=== PATIENT | female | born 1955 | race Caucasian/White ===

== ENCOUNTER → 2019-07-16 | Outpatient (CLI) | payer BC, MEDICARE | END | disposition home or self-care (01) | LOC: LAB SHORT 09:34 → LAB EV 09:34 | DX: R06.02 Shortness of breath (principal) | CPT/HCPCS: 83880 ==

== ENCOUNTER 2020-05-26 08:22 | Day surgery (SDC) | payer MEDICARE, BC ==
[~2020-05-26] VITALS: Ht 154.9 cm; Wt 99.4 kg
[~2020-05-26 08:22] MED LIST: Carisoprodol350 MG PO; ESCI20 PO; FUROSEMIDE20 MG PO; LANSOPRAZOLE30 MG PO; Pravachol40 MG PO; SPIRONOLACTONE25 MG PO; VALSARTAN160 MG PO
--- NOTE | 2020-05-26 10:18 | NUR ---
05/26/20 1018 Ximena Carrillo PT WENT INTO A FIB AT THE START OF THE COLONOSCOPY WITH A RATE BETWEEN 110-120. PT SEDATED FOR PROCEDURE. BP 132/61. PT CONVERTED T0 A FIB AT 1002, UPPER COMPLETED AT 1004. GOING TO COMPLETE COLONOSCOPY PRESSURES ARE GOOD.
--- NOTE | 2020-05-26 11:08 | NUR ---
05/26/20 1108 FRANSISCO PRICE RECEIVED REPORT FROM MIRA ROGERS. DURING MAC PROCEDURE PATIENT CONVERTED TO A FIB. 12 LEAD EKG PERFORMED IN STEP DOWN FOLLOWING PROCEDURE. ATTEMPTED CONVERSION WITH VALSALVA MANEUVER. NO CHANGE. PATIENT SEEN BY DR. TRAORE, ANESTHESIA AND ALLOWED TO BE DISCHARGED. PATIENT'S PRIMARY CARE CONSULTED BY DR. KNOWLES
== END 2020-05-26 11:07 | disposition home or self-care (01) ==
LOC: ORSCSDS 08:22
PROVIDERS: Internal Medicine Gastroenterology
PROC: 0DB78ZX Excision of Stomach, Pylorus, Via Natural or Artificial Opening Endoscopic, Diagnostic (ICD-10-PCS; principal; 2020-05-26 10:15)
PROC: 0D568ZZ Destruction of Stomach, Via Natural or Artificial Opening Endoscopic (ICD-10-PCS; principal; 2020-05-26 10:15)
PROC: 0DBN8ZX Excision of Sigmoid Colon, Via Natural or Artificial Opening Endoscopic, Diagnostic (ICD-10-PCS; principal; 2020-05-26 10:15)
DX: K22.70 Barrett's esophagus without dysplasia (principal); K21.9 Gastro-esophageal reflux disease without esophagitis; K44.9 Diaphragmatic hernia without obstruction or gangrene; K22.2 Esophageal obstruction; Z12.11 Encounter for screening for malignant neoplasm of colon; Z86.010 Personal history of colon polyps; K63.5 Polyp of colon; K57.30 Diverticulosis of large intestine without perforation or abscess without bleeding; K64.1 Second degree hemorrhoids; I10 Essential (primary) hypertension; F17.210 Nicotine dependence, cigarettes, uncomplicated; E66.01 Morbid (severe) obesity due to excess calories; Z68.41 Body mass index [BMI] 40.0-44.9, adult; Z79.899 Other long term (current) drug therapy
CPT/HCPCS: 88305; 88342; 93005; 93010; J2704; J7120

== ENCOUNTER → 2021-08-04 | Outpatient (CLI) | payer MEDICARE, BC | END | disposition home or self-care (01) | LOC: LAB 18:42 → LAB SHORT 18:42 | DX: L02.91 Cutaneous abscess, unspecified (principal) | CPT/HCPCS: 87070; 87075; 87076; 87077; 87185; 87186; 87205 ==

== ENCOUNTER 2022-07-26 09:13 | Emergency (ER) | payer MEDICARE, BC ==
[~2022-07-26] VITALS: Ht 154.9 cm; Wt 108.4 kg
[2022-07-26 10:04] LABS: BASOPHILS ABSOLUTE AUTO 0.07 K/mm3 (0.00-0.23); BASOPHILS PERCENT AUTO 1 % (0-2); EOSINOPHILS ABSOLUTE AUTO 0.08 K/mm3 (0.00-0.68); EOSINOPHILS PERCENT AUTO 1 % (0-6); Hematocrit 43.7 % (33.0-51.0); Hemoglobin 14.7 g/dL (11.5-16.0); IMMATURE GRAN ABSOLUTE AUTO 0.01 K/mm3 (0.00-0.10); IMMATURE GRAN PERCENT AUTO 0 % (0-1); LYMPHOCYTES ABSOLUTE AUTO 2.06 K/mm3 (0.84-5.20); LYMPHOCYTES PERCENT AUTO 29 % (21-46); MONOCYTES ABSOLUTE AUTO 0.57 K/mm3 (0.16-1.47); MONOCYTES PERCENT AUTO 8 % (4-13); Mean Corpuscular HGB 33.3 pg (26.0-34.0); Mean Corpuscular HGB Conc 33.6 g/dL (31.5-36.5); Mean Corpuscular Volume 99 fL (80-100); Mean Platelet Volume 9.6 fL (9.1-12.4); NEUTROPHILS PERCENT AUTO 61 % (41-73); Platelet Count 250 K/mm3 (150-400); RDW Coefficient Variation 12.3 % (11.7-14.2); RDW Standard Deviation 44.4 fL (35.1-46.3); Red Blood Cell Count 4.42 M/mm3 (3.80-5.20); White Blood Cell Count 7.09 K/mm3 (4.00-11.30)
[2022-07-26 10:32] LABS: Albumin, Blood 3.2 g/dL (3.4-5.0); Bilirubin, Direct 0.1 mg/dL (0.0-0.3); Bilirubin, Indirect 0.4 mg/dL (0.1-0.7); Bilirubin, Total 0.5 mg/dL (0.1-1.0); Bun/Creatinine Ratio 14.9 (12.0-20.0); Calcium, Blood 9.1 mg/dL (8.5-10.1); Creatinine, Blood 0.74 mg/dL (0.40-1.00); Globulin, Blood 3.3 g/dL (2.2-4.0); Magnesium, Blood 2.3 mg/dL (1.6-2.4); Potassium, Blood 3.9 mmol/L (3.5-5.5); Total Protein, Blood 6.5 g/dL (6.4-8.2)
[2022-07-26 12:07] LABS: Source, Urine Clean Catch
[2022-07-26 12:13] LABS: Appearance, Urine Hazy (Clear); Bilirubin, Urine Neg (Neg); Blood, Urine 5+ (Neg); Color, Urine Yellow (P-Yellow); Glucose Qualitative, Urine Neg (Neg); Ketones, Urine Neg (Neg); Leukocyte Esterase, Urine 1+ (Neg); Nitrite, Urine Pos (Neg); Protein, Urine 2+ (Neg); Urobilinogen, Urine NORM (Normal)
[2022-07-26 12:26] LABS: Bacteria Many /hpf; Red Blood Cells, Urine 25-50 /hpf (0-2); Squamous Epithelial Cells Few /hpf (Few)
[2022-07-26] MEDS ORDERED: CEFD300 PO (13:56)
== END 2022-07-26 14:00 | disposition home or self-care (01) ==
LOC: ER 09:13
PROVIDERS: Student in an Organized Health Care Education/Training Program
DX: N13.6 Pyonephrosis (principal); I10 Essential (primary) hypertension; Z88.8 Allergy status to other drugs, medicaments and biological substances; Z79.899 Other long term (current) drug therapy
CPT/HCPCS: 36415; 74177; 80048; 80076; 81001; 83690; 83735; 85025; 87077; 87086; 87186; J0696; J1885; J7030; Q9967

== ENCOUNTER → 2023-04-12 | Outpatient (CLI) | payer MEDICARE, BC ==
[~2023-04-12] MED LIST changes: +CEFD300 PO
[2023-04-12 11:10] LABS: BASOPHILS ABSOLUTE AUTO 0.02 K/mm3 (0.00-0.23); BASOPHILS PERCENT AUTO 0 % (0-2); EOSINOPHILS PERCENT AUTO 0 % (0-6); Hematocrit 42.7 % (33.0-51.0); Hemoglobin 15.2 g/dL (11.5-16.0); IMMATURE GRAN ABSOLUTE AUTO 0.03 K/mm3 (0.00-0.10); IMMATURE GRAN PERCENT AUTO 1 % (0-1); LYMPHOCYTES ABSOLUTE AUTO 0.48 K/mm3 (0.84-5.20); LYMPHOCYTES PERCENT AUTO 7 % (21-46); MONOCYTES ABSOLUTE AUTO 0.86 K/mm3 (0.16-1.47); MONOCYTES PERCENT AUTO 13 % (4-13); Mean Corpuscular HGB 33.8 pg (26.0-34.0); Mean Corpuscular HGB Conc 35.6 g/dL (31.5-36.5); Mean Corpuscular Volume 95 fL (80-100); Mean Platelet Volume 9.2 fL (9.1-12.4); NEUTROPHILS ABSOLUTE AUTO 5.09 K/mm3 (1.96-9.15); NEUTROPHILS PERCENT AUTO 79 % (41-73); Platelet Count 184 K/mm3 (150-400); RDW Standard Deviation 42.3 fL (35.1-46.3); White Blood Cell Count 6.48 K/mm3 (4.00-11.30)
[2023-04-12 11:18] LABS: Albumin, Blood 3.3 g/dL (3.4-5.0); Albumin/Globulin Ratio 0.9 (0.8-1.8); Bilirubin, Total 0.6 mg/dL (0.1-1.0); Bun/Creatinine Ratio 10.9 (12.0-20.0); Calcium, Blood 9.3 mg/dL (8.5-10.1); Creatinine, Blood 0.92 mg/dL (0.40-1.00); Globulin, Blood 3.8 g/dL (2.2-4.0); Total Protein, Blood 7.1 g/dL (6.4-8.2)
== END ==
LOC: LAB SHORT 11:03 → LAB 11:03
PROVIDERS: Physician Assistant
DX: R19.7 Diarrhea, unspecified (principal)
CPT/HCPCS: 80053; 85025

== ENCOUNTER 2025-03-03 16:33 | Emergency (ER) | payer MEDICARE ==
[~2025-03-03] VITALS: Ht 154.9 cm; Wt 118.4 kg
[2025-03-03] MEDS ORDERED: Morphine Sulfate 4 MG/1 ML Injection IV ONE (16:55)
[2025-03-03] MEDS ORDERED: Ondansetron HCl 2 MG / ML 2ML Vial IV ONE (16:55)
[2025-03-03 17:10] LABS: BASOPHILS ABSOLUTE AUTO 0.05 K/mm3 (0.00-0.23); BASOPHILS PERCENT AUTO 1 % (0-2); EOSINOPHILS ABSOLUTE AUTO 0.04 K/mm3 (0.00-0.68); EOSINOPHILS PERCENT AUTO 0 % (0-6); Hematocrit 43.8 % (33.0-51.0); Hemoglobin 15.4 g/dL (11.5-16.0); IMMATURE GRAN ABSOLUTE AUTO 0.03 K/mm3 (0.00-0.10); IMMATURE GRAN PERCENT AUTO 0 % (0-1); LYMPHOCYTES ABSOLUTE AUTO 2.43 K/mm3 (0.84-5.20); LYMPHOCYTES PERCENT AUTO 27 % (21-46); MONOCYTES ABSOLUTE AUTO 0.67 K/mm3 (0.16-1.47); MONOCYTES PERCENT AUTO 8 % (4-13); Mean Corpuscular HGB 32.7 pg (26.0-34.0); Mean Corpuscular HGB Conc 35.2 g/dL (31.5-36.5); Mean Corpuscular Volume 93 fL (80-100); Mean Platelet Volume 9.4 fL (9.1-12.4); NEUTROPHILS ABSOLUTE AUTO 5.72 K/mm3 (1.96-9.15); NEUTROPHILS PERCENT AUTO 64 % (41-73); Platelet Count 232 K/mm3 (150-400); RDW Coefficient Variation 11.9 % (11.7-14.2); RDW Standard Deviation 40.8 fL (35.1-46.3); Red Blood Cell Count 4.71 M/mm3 (3.80-5.20); White Blood Cell Count 8.94 K/mm3 (4.00-11.30)
[2025-03-03 17:54] LABS: Albumin, Blood 3.3 g/dL (3.4-5.0); Albumin/Globulin Ratio 0.9 (0.8-1.8); Bilirubin, Total 0.8 mg/dL (0.1-1.0); Bun/Creatinine Ratio 18.9 (12.0-20.0); Calcium, Blood 8.9 mg/dL (8.5-10.1); Creatinine, Blood 0.79 mg/dL (0.40-1.00); Globulin, Blood 3.6 g/dL (2.2-4.0); Potassium, Blood 3.8 mmol/L (3.5-5.5); Total Protein, Blood 6.9 g/dL (6.4-8.2)
[2025-03-03 19:17] LABS: Source, Urine Voided
[2025-03-03 19:20] LABS: Appearance, Urine Cloudy (Clear); Bilirubin, Urine Neg (Neg); Blood, Urine 5+ (Neg); Color, Urine Amber (P-Yellow); Glucose Qualitative, Urine Neg (Neg); Ketones, Urine Neg (Neg); Leukocyte Esterase, Urine Neg (Neg); Nitrite, Urine Pos (Neg); Protein, Urine 2+ (Neg); Urobilinogen, Urine 1+ (Normal)
[2025-03-03 19:30] LABS: Bacteria Many /hpf; Red Blood Cells, Urine TNTC /hpf (0-2); Squamous Epithelial Cells Few /hpf (Few); White Blood Cells, Urine 0-2 /hpf (0-5)
[2025-03-03] MEDS ORDERED: Ketorolac Tromethamine 30mg Vial IV ONE (19:55)
[2025-03-03 20:30] VITALS: BP 132/85
[2025-03-03] MEDS ORDERED: OXYACE7.5T PO (20:33)
== END 2025-03-03 20:46 | disposition home or self-care (01) ==
LOC: ER 16:33
PROVIDERS: Emergency Medicine
DX: N23 Unspecified renal colic (principal); R31.9 Hematuria, unspecified; I10 Essential (primary) hypertension; Z88.8 Allergy status to other drugs, medicaments and biological substances; Z79.899 Other long term (current) drug therapy
CPT/HCPCS: 74177; 80053; 81001; 83690; 85025; 87077; 87086; 87186; 93005; 93010; 96374-59; 96375; 99284-25; J1885; J2270; J2405; Q9967

== ENCOUNTER → 2025-03-11 | Outpatient (CLI) | payer MEDICARE ==
[~2025-03-11] MED LIST changes: +OXYACE7.5T PO
[2025-03-11 12:44] LABS: Hematocrit 44.2 % (33.0-51.0); Hemoglobin 15.6 g/dL (11.5-16.0); Mean Corpuscular HGB 32.6 pg (26.0-34.0); Mean Corpuscular HGB Conc 35.3 g/dL (31.5-36.5); Mean Corpuscular Volume 92 fL (80-100); Mean Platelet Volume 9.9 fL (9.1-12.4); Platelet Count 235 K/mm3 (150-400); RDW Coefficient Variation 12.5 % (11.7-14.2); RDW Standard Deviation 42.3 fL (35.1-46.3); Red Blood Cell Count 4.79 M/mm3 (3.80-5.20); White Blood Cell Count 6.77 K/mm3 (4.00-11.30)
[2025-03-11 12:54] LABS: Albumin, Blood 3.6 g/dL (3.4-5.0); Albumin/Globulin Ratio 1.1 (0.8-1.8); Bilirubin, Total 0.9 mg/dL (0.1-1.0); Calcium, Blood 9.7 mg/dL (8.5-10.1); Creatinine, Blood 0.91 mg/dL (0.40-1.00); Globulin, Blood 3.3 g/dL (2.2-4.0); Potassium, Blood 3.8 mmol/L (3.5-5.5); Total Protein, Blood 6.9 g/dL (6.4-8.2)
[2025-03-11 13:09] LABS: BASOPHILS ABSOLUTE MAN 0.06 K/mm3 (0.00-0.23); BASOPHILS PERCENT MAN 1 % (0-2); EOSINOPHILS PERCENT MAN 0 % (0-6); LYMPHOCYTES ABSOLUTE MAN 1.48 K/mm3 (0.84-5.20); LYMPHOCYTES PERCENT MAN 22 % (21-46); MONOCYTES PERCENT MAN 3 % (4-13); SEG NEUTROPHILS PERCENT MAN 74 % (41-73); TOTAL CELLS COUNTED 100
== END | disposition home or self-care (01) ==
LOC: LAB SHORT 11:31 → LAB 11:31
PROVIDERS: Nurse Practitioner
DX: R11.2 Nausea with vomiting, unspecified (principal); R10.9 Unspecified abdominal pain
CPT/HCPCS: 80053; 83690; 85007; 85027

== ENCOUNTER 2025-07-06 06:09 | Day surgery (SDC) | payer MEDICARE ==
[~2025-07-06] VITALS: Ht 154.9 cm; Wt 110.0 kg
[2025-07-06] VITALS (11 sets, daily range): BP systolic 99–139; BP diastolic 71–109
[2025-07-06] MEDS ORDERED: ELIQUIS5 M2 PO (06:36)
[2025-07-06] MEDS ORDERED: ALBU90OI INH (06:36)
[2025-07-06] MEDS ORDERED: METO50ER PO (06:37)
[2025-07-06] MEDS ORDERED: NS 1,000 ML IV ONE (06:57)
--- NOTE | 2025-07-06 07:30 | NUR ---
ASSUMED CARE FROM ANESTHESIA. PT AWAKE AND VERBALIZING WELL. AFIB 60-70 BPM POST CARDIOVERSION.
--- NOTE | 2025-07-06 08:14 | NUR ---
PT AND FRIEND VERBALIZED UNDERSTANDING OF WRITTEN AND VERBAL D/C INST. AFIB 70BPM ON D/C. IV REMOVED. PT TAKEN OUT OF THE [facility]ENTER VIA W/C.
[2025-07-06] MEDS ORDERED: Propofol 10mg/ml 20 ml Vial (Procedural) IV ONE (11:54)
== END 2025-07-06 23:00 | disposition home or self-care (01) ==
LOC: MHTC 06:09
DX: I48.11 Longstanding persistent atrial fibrillation (principal); I10 Essential (primary) hypertension; I44.1 Atrioventricular block, second degree; K21.9 Gastro-esophageal reflux disease without esophagitis; Z88.8 Allergy status to other drugs, medicaments and biological substances; Z79.899 Other long term (current) drug therapy
CPT/HCPCS: 92960; J2704; J7030